=== PATIENT | female | born 1945 | race African-American/Black ===

== ENCOUNTER 2016-05-10 15:50 | Emergency (ER) | payer MEDICARE ==
[2016-05-10 17:53] LABS: Blood Urea Nitrogen 19 mg/dL (7-17)
[2016-05-10] MEDS ORDERED: NACL ONE (17:54)
--- NOTE | 2016-05-10 19:26 | Cat Scan Report ---
FINAL REPORT EXAM: CT ABDOMEN PELVIS W CON HISTORY: PAIN RT right lower quadrant TECHNIQUE: Standard enhanced CT of the abdomen and pelvis. Coronal and sagittal reconstruction was also performed. Contrast: 100 mL Omnipaque 300 given IV. PRIORS: None. FINDINGS: Within the abdomen, the liver, spleen, pancreas, gallbladder, adrenal glands, and kidneys are unremarkable. There is a 1.1 x 1.3 cm cyst in the midpole left kidney. No evidence for retroperitoneal or pelvic lymphadenopathy is seen. The bowel loops have normal caliber. No soft tissue mass, fluid collection, inflammatory change, or free air is seen within the abdomen or pelvis. The appendix is normal. Within the pelvis, the bladder is unremarkable. The uterus is normal. No evidence for mass or lymphadenopathy is seen in the pelvis. Images through the upper abdomen include the lung bases which demonstrates mild bibasilar atelectasis. Pacemaker wires terminate in the right atrium and right ventricle. Bony structures show no focal abnormalities. Degenerative disc changes throughout the lower thoracic and lumbar spine is seen, most marked at L5-S1. IMPRESSION: No acute intra-abdominal process noted. Left renal cyst.
--- NOTE | 2016-05-10 21:29 | Emergency Department Report ---
ED General Adult HPI - General Chief complaint: Abdominal Pain Stated complaint: ABD PAIN Time Seen by Provider: 05/10/16 20:54 Source: patient, family Mode of arrival: Ambulatory Limitations: No Limitations - History of Present Illness Initial comments: THIS IS A 70 Y/O FEMALE, previously unknown to me. The past medical history of hypertension, and cardiac disease. Primary care doctor is Dr. Rebecca Portillo The patient presents to the ER after being sent by her primary care doctor for evaluation of abdominal pain. The abdominal pain is in the right groin and right lower quadrant. It increases with range of motion and walking. Decreases with rest. It does not radiate anywhere. Patient denies vomiting, dysuria, constipation, chest pain and shortness of breath. It does not radiate anywhere. -: Gradual Location: abdomen Severity scale (0 -10): 4 Consistency: intermittent Improves with: rest Worsens with: movement Associated Symptoms: denies: confusion, chest pain, cough, diaphoresis, fever/ chills, headaches, loss of appetite, malaise, nausea/vomiting, rash, seizure, shortness of breath, syncope, weakness - Related Data Home Medications Medication Instructions Recorded Confirmed Last Taken Clonidine HCl 0.1 mg PO DAILY 12/02/12 12/02/12 12/02/12 09:00 .1mg Clopidogrel Bisulfate [Clopidogrel] 75 mg PO DAILY 12/02/12 12/02/12 12/01/12 10 :00 75mg Isosorbide Mononitrate [Isosorbide 60 mg PO DAILY 12/02/12 12/02/12 12/01/12 09: 00 Mononitrate ER (IMDUR)] Nitroglycerin [Nitrostat] 0.4 mg SL PRN 12/02/12 12/02/12 12/02/12 07:30 .4mg Telmisartan Tab [Micardis] 40 mg PO DAILY 12/02/12 12/02/12 12/01/12 10:00 40mg Previous Rx's Medication Instructions Recorded Last Taken Type Cephalexin [Keflex] 500 mg PO Q8H #9 capsule 12/02/12 Unknown Rx Hydrocodone Bit/Acetaminophen 1 each PO Q6H PRN #10 tablet 12/02/12 Unknown Rx [Lortab 5-500 Tablet] traMADol [Ultram 50 MG tab] 50 mg PO Q6HR PRN #12 tablet 05/10/16 Unknown Rx Allergies Allergy/AdvReac Type Severity Reaction Status Date / Time oxytetracycline Allergy Severe SWELLS Verified 12/25/12 01:01 [From Terramycin] CERTAIN AREAS OF SKIN oxytetracycline HCl Allergy Severe SWELLS Verified 12/25/12 01:01 [From Terramycin] CERTAIN AREAS OF SKIN ED Review of Systems ROS: Stated complaint: Other details as noted in HPI Constitutional: denies: fever Eyes: denies: vision change ENT: denies: epistaxis Respiratory: denies: orthopnea Cardiovascular: denies: chest pain Gastrointestinal: abdominal pain, vomiting Genitourinary: denies: urgency, dysuria Musculoskeletal: arthralgia, myalgia Skin: denies: lesions Neurological: denies: weakness Psychiatric: denies: anxiety ED Past Medical Hx - Past Medical History Previous Medical History?: Yes Hx Hypertension: Yes Hx COPD: Yes Hx HIV: No Additional medical history: Hep C that was treated with interferon - Surgical History Past Surgical History?: Yes Hx Pacemaker: Yes Additional Surgical History: LEEP procedure - Social History Smoking Status: Unknown if ever smoked - Medications Home Medications: Home Medications Medication Instructions Recorded Confirmed Last Taken Type Cephalexin [Keflex] 500 mg PO Q8H #9 capsule 12/02/12 Unknown Rx Clonidine HCl 0.1 mg PO DAILY 12/02/12 12/02/12 12/02/12 09:00 History .1mg Clopidogrel Bisulfate [Clopidogrel] 75 mg PO DAILY 12/02/12 12/02/12 12/01/12 10 :00 History 75mg Hydrocodone Bit/Acetaminophen 1 each PO Q6H PRN #10 tablet 12/02/12 Unknown Rx [Lortab 5-500 Tablet] Isosorbide Mononitrate [Isosorbide 60 mg PO DAILY 12/02/12 12/02/12 12/01/12 09: 00 History Mononitrate ER (IMDUR)] Nitroglycerin [Nitrostat] 0.4 mg SL PRN 12/02/12 12/02/12 12/02/12 07:30 History .4mg Telmisartan Tab [Micardis] 40 mg PO DAILY 12/02/12 12/02/12 12/01/12 10:00 History 40mg traMADol [Ultram 50 MG tab] 50 mg PO Q6HR PRN #12 tablet 05/10/16 Unknown Rx ED Physical Exam - General Limitations: No Limitations General appearance: alert, in no apparent distress - Head Head exam: Present: atraumatic, normocephalic - Eye Eye exam: Present: normal appearance, EOMI. Absent: nystagmus - ENT ENT exam: Present: normal exam, normal orophraynx, mucous membranes moist, normal external ear exam - Neck Neck exam: Present: normal inspection, full ROM. Absent: tenderness, meningismus - Respiratory Respiratory exam: Present: normal lung sounds bilaterally. Absent: respiratory distress, wheezes, rales, rhonchi, stridor, decreased breath sounds - Cardiovascular Cardiovascular Exam: Present: regular rate, normal rhythm, normal heart sounds. Absent: bradycardia, tachycardia, irregular rhythm, systolic murmur, diastolic murmur, rubs, gallop - GI/Abdominal GI/Abdominal exam: Present: soft, tenderness, normal bowel sounds, other (there is minimal right lower quadrant pain. There is no rebound, guarding or peritoneal signs.). Absent: distended, guarding, rebound, rigid, pulsatile mass - Extremities Exam Extremities exam: Present: normal inspection, full ROM, tenderness (there is pain with passive internal and external rotation of the right hip. There is no redness, pus, streaking, crepitus over the right hip. The patient walks with a steady gait. She is able to elevate each leg individually while holding her body weight on the contralateral leg.), normal capillary refill. Absent: pedal edema, joint swelling, calf tenderness - Back Exam Back exam: Present: normal inspection, full ROM. Absent: tenderness, CVA tenderness (R), CVA tenderness (L), paraspinal tenderness, vertebral tenderness - Neurological Exam Neurological exam: Present: alert, normal gait, other (Extraocular movements intact. Tongue midline. No facial droop. Facial sensation intact to light touch in the V1, V2, V3 distribution bilaterally. 5 and 5 strength in 4 extremities.. Sensation is intact to light touch in 4 extremities.). Absent: motor sensory deficit - Psychiatric Psychiatric exam: Present: normal affect, normal mood - Skin Skin exam: Present: warm, dry, intact, normal color. Absent: rash ED Course Vital Signs 05/10/16 05/10/16 05/10/16 19:55 20:50 20:55 Temperature 98.1 F 98.3 F Pulse Rate 77 60 60 Respiratory 14 19 18 Rate Blood Pressure Blood Pressure 142/73 145/59 [Right] O2 Sat by Pulse 100 100 100 Oximetry 05/10/16 05/10/16 05/10/16 22:13 22:21 22:30 Temperature Pulse Rate 62 60 60 Respiratory 22 18 Rate Blood Pressure 145/59 125/71 134/68 Blood Pressure [Right] O2 Sat by Pulse 99 99 100 Oximetry 05/10/16 22:41 Temperature Pulse Rate 60 Respiratory 21 Rate Blood Pressure 134/68 Blood Pressure [Right] O2 Sat by Pulse 98 Oximetry - Reevaluation(s) Reevaluation #1: 05/10/16 22:39 Differential diagnosis: Colitis, diverticulitis, appendicitis, muscular pain, hip pain, arthritis Assessment and plan: 70-year-old female with 3 weeks of groin and lower abdominal pain. She is afebrile with reassuring vital signs. CT scan of the abdomen and pelvis demonstrates no acute surgical condition. The patient has no clinical exam findings or historical findings to suggest epidural compression syndrome or abdominal aortic aneurysm. She felt improved after pain medication. I specifically discussed her findings with her primary care doctor, Dr. Portillo, and we both agree that the patient would be suitable to follow up as an outpatient. Patient will be discharged with pain medication. Return precautions are extensively reviewed. Reevaluation #2: 05/10/16 22:44 , Tarry to what is documented in the triage nurse note, the patient is an appropriate historian, she is able to describe her symptoms to me, exacerbating or relieving factors, and duration of symptoms. ED Medical Decision Making - Lab Data Result diagrams: 05/10/16 21:13 05/10/16 15:29 Vital Signs 05/10/16 05/10/16 05/10/16 19:55 20:50 20:55 Temperature 98.1 F 98.3 F Pulse Rate 77 60 60 Respiratory 14 19 18 Rate Blood Pressure Blood Pressure 142/73 145/59 [Right] O2 Sat by Pulse 100 100 100 Oximetry 05/10/16 22:13 Temperature Pulse Rate 62 Respiratory Rate Blood Pressure 145/59 Blood Pressure [Right] O2 Sat by Pulse 99 Oximetry Labs 05/10/16 05/10/16 05/10/16 15:29 21:05 21:13 WBC 5.4 RBC 4.53 Hgb 12.8 Hct 40.7 MCV 90 MCH 28 MCHC 32 RDW 13.5 Plt Count 134 L Lymph % (Auto) 32.0 Wake % (Auto) 8.5 H Eos % (Auto) 3.0 Baso % (Auto) 0.8 Lymph # 1.7 Wake # 0.5 Eos # 0.2 Baso # 0.0 Seg Neutrophils % 55.7 Seg Neutrophils # 3.0 BUN 19 H Creatinine 0.7 Estimated GFR > 60 Lipase Urine Color Straw Urine Turbidity Clear Urine pH 6.0 Ur Specific Lewis 1.057 H Urine Protein <15 mg/dl Urine Glucose (UA) Neg Urine Ketones Neg Urine Blood Neg Urine Nitrite Neg Urine Bilirubin Neg Urine Urobilinogen < 2.0 Ur Leukocyte Esterase Sm Urine WBC (Auto) 2.0 Urine RBC (Auto) 3.0 U Epithel Cells (Auto) 1.0 05/10/16 21:13 WBC RBC Hgb Hct MCV MCH MCHC RDW Plt Count Lymph % (Auto) Wake % (Auto) Eos % (Auto) Baso % (Auto) Lymph # Wake # Eos # Baso # Seg Neutrophils % Seg Neutrophils # BUN Creatinine Estimated GFR Lipase 42 Urine Color Urine Turbidity Urine pH Ur Specific Lewis Urine Protein Urine Glucose (UA) Urine Ketones Urine Blood Urine Nitrite Urine Bilirubin Urine Urobilinogen Ur Leukocyte Esterase Urine WBC (Auto) Urine RBC (Auto) U Epithel Cells (Auto) - Radiology Data Radiology results: report reviewed, image reviewed CT scan of the abdomen and pelvis with IV contrast demonstrates no acute disease. Specifically, the appendix is noted to be normal. DJD is noted, bibasilar atelectasis is noted, pacemaker wires noted. Critical care attestation.: If time is entered above; I have spent that time in minutes in the direct care of this critically ill patient, excluding procedure time. ED Disposition Clinical Impression: Abdominal pain Disposition: DISCHARGED TO HOME OR SELFCARE Is pt being admited?: No Does the pt Need Aspirin: No Condition: Stable Instructions: Abdominal Pain (ED) Additional Instructions: Rest and avoid heavy lifting. Avoid strenuous physical activity. Take the pain medication as directed. When taking the pain medication, do not drive, consume alcohol, or operate cars or motor vehicles, or make important decisions. Follow up with her primary care doctor within the next week to [address] scan of the abdomen and pelvis demonstrated no acute abnormality, and laboratory studies were also unremarkable. Return to the ER right away with new pain, worsened pain, migration of pain, fevers or chills, intractable nausea or vomiting, inability to tolerate liquid feeds. Prescriptions: traMADol [Ultram 50 MG tab] 50 mg PO Q6HR PRN #12 tablet PRN Reason: Pain Referrals: STACY PORTILLO MD [Primary Care Provider] - 3-5 Days
[2016-05-10 21:43] LABS: Basophils % (Auto) 0.8 % (0.0-1.8); Hematocrit 40.7 % (30.3-42.9); Hemoglobin 12.8 gm/dl (10.1-14.3); Mean Corpuscular HGB Conc 32 % (30-34); Mean Corpuscular Hemoglobin 28 pg (28-32); Mean Corpuscular Volume 90 fl (79-97); Platelet Count 134 K/mm3 (140-440); Red Blood Count 4.53 M/mm3 (3.65-5.03); Red Cell Distribution Width 13.5 % (13.2-15.2); White Blood Count 5.4 K/mm3 (4.5-11.0)
[2016-05-10 21:44] LABS: Bilirubin,Urine NEG (Negative); Blood,Urine NEG (Negative); Ketones,Urine NEG (Negative); Leukocyte Esterase,Urine SM (Negative); Nitrite,Urine NEG (Negative); Protein,Urine <15 mg/dL mg/dL (Negative); Urobilinogen,Urine < 2.0 mg/dL (<2.0)
[2016-05-10] MEDS ORDERED: TORADOL IM ONE (22:26)
[2016-05-10 22:58] VITALS: BP 134/68
== END 2016-05-10 22:57 | disposition home or self-care (01) ==
LOC: ED 15:50 → CT 15:50 → ED 22:57
DX: R10.31 Right lower quadrant pain (principal); I10 Essential (primary) hypertension; J44.9 Chronic obstructive pulmonary disease, unspecified
CPT/HCPCS: 36415; 74177; 81001; 82565; 83690; 84520; 85025; 96372; 99284; J1885; Q9967